=== PATIENT | female | born 1945 | race Two or more races ===

== ENCOUNTER → 2017-07-10 | Emergency (ER) | payer MEDICARE ==
[~2017-07-10] VITALS: Ht 165.1 cm; Wt 63.5 kg
[~2017-07-10] MED LIST: CAPTOPRIL12.5 MG PO
[2017-07-10 12:44] VITALS: BP 134/70
--- NOTE | 2017-07-10 14:23 | Emergency Room Report ---
History of Present Illness General Chief Complaint: Upper Respiratory Illness Source: Patient Present Illness HPI This patient eloped prior to having imaging performed and prior to full evaluation by emergency department provider. Allergies: Coded Allergies: No Known Allergies (Unverified , 07/10/17) Nursing Documentation-[facility] Past Medical History: No History, Except For Hx Hypertension: Yes Physical Exam Vital Signs Date Time Temp Pulse Resp B/P (MAP) Pulse Ox O2 Delivery O2 Flow Rate FiO2 07/10/17 12:44 98.6 72 18 134/70 100 Room Air Medical Decision Making PA Attestation Dr. Rincon is my supervising Physician whom patient management has been discussed with. ER Course This patient eloped prior to having imaging performed and prior to full evaluation by emergency department provider. Last Vital Signs Date Time Temp Pulse Resp B/P (MAP) Pulse Ox O2 Delivery O2 Flow Rate FiO2 07/10/17 12:44 98.6 72 18 134/70 100 Room Air Disposition: ELOPED Condition: Unknown Luly Zavala Jul 10, 2017 14:23
--- NOTE | 2017-07-22 00:13 | Cardiology Report ---
APPROVED REPORT EKG Measurement Heart [id number] Normal sinus rhythm Right bundle branch block Left anterior fascicular block Bifascicular block Possible Lateral infarct, age undetermined Abnormal ECG
== END | disposition home or self-care (01) ==
LOC: EDUNIT# 12:43 → EDBD 12:44 → EMR 15:11
DX: J06.9 Acute upper respiratory infection, unspecified (principal); I10 Essential (primary) hypertension
CPT/HCPCS: 93005; 99282